=== PATIENT | female | born 1995 | race Caucasian/White ===

== ENCOUNTER 2017-06-23 15:44 | Emergency (ER) | payer OTHER ==
[~2017-06-23] VITALS: Ht 162.6 cm; Wt 57.6 kg
[2017-06-23] MEDS ORDERED: PRENATA CHEWAB1 EACH PO (16:00)
== END 2017-06-23 18:55 | disposition home or self-care (01) ==
LOC: ED 15:44
DX: O03.9 Complete or unspecified spontaneous abortion without complication (principal); F17.200 Nicotine dependence, unspecified, uncomplicated; Z79.899 Other long term (current) drug therapy
CPT/HCPCS: 76801; 76802; 76817; 86900; 86901; 99284

== ENCOUNTER 2017-07-02 23:21 | Emergency (ER) | payer OTHER ==
[~2017-07-02] VITALS: Ht 162.6 cm; Wt 57.6 kg
[~2017-07-02 23:21] MED LIST: PRENATA CHEWAB1 EACH PO
== END 2017-07-03 02:50 | disposition home or self-care (01) ==
LOC: ED 23:21
DX: O03.9 Complete or unspecified spontaneous abortion without complication (principal); F17.200 Nicotine dependence, unspecified, uncomplicated; Z79.899 Other long term (current) drug therapy
CPT/HCPCS: 36415; 76801; 76817; 84702; 85025; 88305; 99284